=== PATIENT | female | born 1950 | race Caucasian/White ===

== ENCOUNTER → 2016-12-09 12:20 | Outpatient (CLI) | payer MEDICARE, BC ==
[2014-02-11 06:25] VITALS: BMI 31.2
[~2016-12-09 12:20] MED LIST: COREG 3.1253.125 MG PO; COUMADIN5 MG PO; CYCLOBENZAPRINE10 MG PO; FISH OIL 1,0001 CA1 PO; GABAPENTIN100 MG PO; HYDROCODONE-APA1 TAB PO; LEVOTHROID100 MCG PO; LIPITOR10 MG PO; MULTI-DAY VITAM1 TAB PO; OMEPRAZOLE20 M1 PO; PREDNISONE2.5 MG PO; TRIMETHOPRIM100 MG PO; XANAX0.25 MG; ZESTORETIC 20/21 TAB PO; ZOFRAN4 MG PO
[2016-12-31 10:00] VITALS: BMI 28.0
== END | disposition home or self-care (01) ==
LOC: D.LABREF 12:20
DX: M17.12 Unilateral primary osteoarthritis, left knee (principal); Z11.8 Encounter for screening for other infectious and parasitic diseases

== ENCOUNTER 2016-12-26 09:00 | Inpatient (IN) | payer MEDICARE, BC ==
[~2016-12-26] VITALS: Ht 154.9 cm; Wt 67.3 kg
[2016-12-26 08:28] LABS: BASOPHILS 0.5 % (0.0-2.0); HEMATOCRIT 40.7 % (36.0-48.0); IMMATURE GRANULOCYTES 0.2 % (0-5); LYMPHOCYTES 35.5 % (15-50); MCH 31.7 pg (26.0-34.0); MCHC 31.9 g/dL (31.0-37.0); MCV 99.3 fL (80.0-100.0); MONOCYTES 7.7 % (2-11); NEUTROPHILS 55.1 % (40-80); PLATELET COUNT 350 10x3/uL (130-400); RDW 13.6 % (11.5-14.5); WBC 5.9 10x3/uL (4.8-10.8)
[2016-12-26 08:36] LABS: APPEARANCE CLEAR (CLEAR); BILIRUBIN NEGATIVE (NEGATIVE); COLOR YELLOW (YELLOW); GLUCOSE NEGATIVE (NEGATIVE); KETONE NEGATIVE (NEGATIVE); LEUKOCYTE ESTERASE TRACE (NEGATIVE); NITRITE NEGATIVE (NEGATIVE); PROTEIN NEGATIVE (NEGATIVE); SPECIFIC GRAVITY 1.015 (1.005-1.020); UROBILINOGEN NORMAL (NORMAL)
[2016-12-26 08:37] LABS: BACTERIA MODERATE /hpf (NONE SEEN); MUCUS <1+ /lpf (NONE SEEN); RED CELLS - URINE 0-5 /hpf (0-5)
[2016-12-26 08:38] LABS: ANION GAP 9.9 mmol/L (8-16); APTT 38.7 SECONDS (22.8-39.4); CALCIUM 9.1 mg/dL (8.5-10.1); CARBON DIOXIDE 32.4 mmol/L (21.0-32.0); INR 2.42 (0.85-1.17); POTASSIUM - SERUM 3.3 mmol/L (3.5-5.1); PROTIME 26.5 SECONDS (11.6-15.0)
[~2016-12-26 09:00] MED LIST changes: -FISH OIL 1,0001 CA1 PO; -HYDROCODONE-APA1 TAB PO; -TRIMETHOPRIM100 MG PO; -ZOFRAN4 MG PO
[2016-12-31] VITALS (11 sets, daily range): BP systolic 88–121; BP diastolic 40–81; Ht 154.9 cm; Wt 67.3 kg
[2016-12-31] MEDS ORDERED: FISH OIL 1,0001 CA1 PO (06:03)
[2016-12-31] MEDS ORDERED: TRIMETHOPRIM100 MG PO (06:05)
[2016-12-31 06:59] LABS: INR 1.02 (0.85-1.17); PROTIME 13.3 SECONDS (11.6-15.0)
--- NOTE | 2016-12-31 08:11 | NUR ---
LEFT LEG AND FOOT WASHED WITH HIBICLENS AND ALCOHOL PRIOR TO CHLORPREP PER DN
--- NOTE | 2016-12-31 08:55 | NUR ---
ANESTHESIA ADVISED THE PATIENTS O2 SAT UPON MOVING TO THE TABLE WAS 88% PRIOR TO PROCEEDURE
--- NOTE | 2016-12-31 09:01 | NUR ---
DR PALUMBO CONSULTED ABOUT THE PATIENTS O2 SAT DR PALUMBO ORDERED DUONEB
--- NOTE | 2016-12-31 09:27 | NUR ---
DR PALUMBO CONSULTED ABOUT THE PATIENTS O2 SAT AND HE ADVISED HE WOULD COME SEE THE PATIENT IN RR
--- NOTE | 2016-12-31 09:43 | NUR ---
DR PALUMBO AT BEDSIDE ASSESING THE PTS O2 SAT. PT BLACED ON OXIMIZER AND DR PALUMBO ORDERED DISCHARGE WITH O2 SAT > 90%
--- NOTE | 2016-12-31 10:32 | NUR ---
RECIEVED PT FROM PACU PER BED. OXYGEN AT 5L PER OXIMYZER. NO SOB NOTED OR VOICED. LEFT LEG WRAPPED FROM MID THIGH TO TOES WITH TORIE WRAP. UNABLE TO MOVE TOES AT PRESENT BUT TOES ARE WARM AND PINK. ICE NOTED TO LEFT KNEE. FAMILY AT BEDSIDE. SCDS ON BILAT. BED ALARM ON FOR SAFETY. CALL LIGHT IN REACH
--- NOTE | 2016-12-31 10:56 | NUR ---
BP LITTLE LOWER THAN PREVIOUS READINGS. DID TAKE BP MEDS THIS AM. IV FLUIDS INCREASED TO 200CC/HR X 1 HOUR.
--- NOTE | 2016-12-31 13:15 | NUR ---
PT DOING WELL ON OXYGEN AND SLOWLY DECREASING PERCENT. CURRENTLY TURNED DOWN TO 2L
--- NOTE | 2016-12-31 18:05 | NUR ---
PT BP 97/56. NO COMPLAINTS AT PRESENT. OXGYGEN AT 93% WILL LEAVE OFF AT PRESENT
--- NOTE | 2016-12-31 23:49 | NUR ---
PATIENT SLEEPING IN BED, NO APPARENT DISTRESS. BED IN LOWEST LOCKED POSITION, CALL LIGHT WITHIN REACH, HOB ELEVATED, BED ALARM ON.
[2017-01-01] VITALS: BP 107/66
--- NOTE | 2017-01-01 00:01 | NUR ---
RESTING WITH EYES CLOSED, NO DISTRESS NOTED, CL IN REACH
[2017-01-01 04:00] VITALS: BP 100/60
[2017-01-01 05:30] LABS: BASOPHILS 0.4 % (0.0-2.0); EOSINOPHILS 1.3 % (0-7); HEMATOCRIT 29.8 % (36.0-48.0); HEMOGLOBIN 9.3 g/dL (12-16); IMMATURE GRANULOCYTES 0.2 % (0-5); MCHC 31.2 g/dL (31.0-37.0); MCV 99.3 fL (80.0-100.0); MEAN PLATELET VOLUME 9.3 fL (7.4-10.4); MONOCYTES 8.9 % (2-11); NEUTROPHILS 65.2 % (40-80); RDW 13.6 % (11.5-14.5); WBC 8.2 10x3/uL (4.8-10.8)
[2017-01-01 05:32] LABS: ANION GAP 7.1 mmol/L (8-16); CALCIUM 7.8 mg/dL (8.5-10.1); CARBON DIOXIDE 30.4 mmol/L (21.0-32.0); CREATININE - SERUM 1.3 mg/dL (0.6-1.3); POTASSIUM - SERUM 3.5 mmol/L (3.5-5.1)
[2017-01-01 05:42] LABS: PLATELET COUNT 238 10x3/uL (130-400)
--- NOTE | 2017-01-01 07:00 | OP ---
PATIENT NAME: IVETT AGUILAR MEDICAL RECORD: [id number] :48 LOCATION:[id number] ADMISSION DATE:12/31/16 SURGEON: MICHELLE HERNANDEZ MD DATE OF OPERATION: 12/31/2016 PREOPERATIVE DIAGNOSIS: Left knee degenerative joint disease. POSTOPERATIVE DIAGNOSIS: Left knee degenerative joint disease. PROCEDURE PERFORMED: Left total knee arthroplasty using a Biomet system. SURGEON: Demarco Hernandez MD ANESTHESIA: General with a block for postop pain. CONDITION: The patient tolerated the procedure well, was transferred to the recovery room in stable condition at termination of the procedure. INDICATIONS: This is a 66-year-old female that has had significant pain in her knee. It is increasingly getting worse. She is no longer tolerating nonoperative treatments. We discussed risks, benefits, and alternatives of surgery. She understood and wished to proceed. OPERATIVE REPORT: The patient was taken to the operating room, placed in a supine position. General anesthesia was obtained. She received a block in the preop holding area. In the operating room, she had the initial prep and drape followed by secondary ChloraPrep and Ioban dressing placement. Left leg was confirmed to be the correct leg. It was then prepped and draped in normal fashion. After this was accomplished, she was exsanguinated with an Marvel wrap. Tourniquet was elevated to 350. Midline incision was made followed by a medial parapatellar incision. Fat pad was excised. Medial soft tissue sleeve was elevated. The femur was entered with a drill. The distal guide was placed. Distal femoral cut was made. Following which it was excised. The rest of the distal femoral cuts were made at a 60. I then cut the proximal tibia, placed the femoral component and the tibial component, took it through range of motion and then marked for rotation. I then punched for tibial tray. Once this was accomplished, I then proceeded to take off the backside of the patella, measured this for a 31 and drilled the three peg holes for a 31 patella. She was then copiously irrigated. I then cemented into place a 60 femur, 67 tibia, 31 three peg hole patellar button. A 12 poly trial was placed with cement dried. Once the cement was dry, I took out the poly cleaned up the excess cement, copiously irrigated, then placed a final 12 poly. I then irrigated again. I then closed with #1 barbed PDS followed by 2-0 Vicryl followed by emmanuel. She was placed in soft dressing, awakened and transferred to recovery room in stable condition, having tolerated the procedure well. TRANSINT:[id number] Voice Confirmation ID: [id number] DOCUMENT ID: [id number] OPERATIVE REPORT [id number] IVETT AGUILAR, MICHELLE ZHOU MD at 0700 CC: [id number] DICTATION DATE: 12/31/16 0832 SPLITTER HAND: 12/31/16 0907 ADM IN [facility] [address] [place] [address]
[2017-01-01 07:58] VITALS: BP 99/58
--- NOTE | 2017-01-01 11:13 | NUR ---
PT SEEN THIS AM. DRESSING TO LEFT KNEE CLEAN DRY AND INTACT. STATES FEELS BETTER TODAY. WILL BE UP WITH THERAPY TODAY.
--- NOTE | 2017-01-01 11:25 | NUR ---
* Is the patient Alert and Oriented? Yes 0 * How many steps to enter\exit or inside your home? 1 0 * PCP Dr. Dubois 0 * Pharmacy [facility] on [address] * Preadmission Environment Home with Family 0 * ADLs Independent 0 * Equipment Rolling Walker 0 * List name and contact numbers for known caregivers / representatives who currently or will assist patient after discharge: Daughter Simone Luna [phone] Daughter - Sriram [phone] 0 * Additional services required to return to the preadmission environment? Yes 0 * Can the patient safely return to the preadmission environment? Yes 0 * Has this patient been hospitalized within the prior 30 days at any hospital? No 0 01/01/2017 11:25 DCP: Discharge Planning Patient Name: IVETT AGUILAR Admission Status: Elective Accout number: [id number] Admission Date: 12-31-2016 : 1950 Admission Diagnosis: Attending: RENU Current LOS: 1 Anticipated DC Date: 01-02-2017 Planned Disposition: Outpatient PT\OT Primary Insurance: MEDICARE A & B Discharge Planning Comments: CM met with patient to assess dc plans/needs. She states her adult grandson lives with her. She reports she was independent with all ADL's & IADL's prior to admission. She has a rolling walker. At dc, she will return home. She states her daughters will stay with her for a week or two while she recovers. She has chosen [facility] for outpatient physical therapy. Appt. scheduled for 01/06 @ 1100. Anticipate dc tomorrow. CM will follow. K 9 Handler/ Deputy: Sangeeta Rahman
[2017-01-01 12:17] VITALS: BP 90/48
[2017-01-01 15:53] VITALS: BP 99/52
--- NOTE | 2017-01-01 18:16 | NUR ---
CURRENTLY IN CPM AND TOLERATING WITHOUT COMPLAINTS. DRESSING REMAINS DRY AND INTACT. PAIN IS CONTROLLED. CALL LIGHT IN REACH
--- NOTE | 2017-01-01 19:00 | NUR ---
PATIENT SUPINE IN BED ON CPM. HOB 30 DEGREES. AAOX4. RR EVEN AND UNLABORED. 0 S/S OF DISTRESS. STATES PAIN IS A 5/10. IV TO RIGHT FA S/L WITH DRIED BLOOD AROUND INSERTION SITE. BANDAGE TO LEFT KNEE CDI. SCD'S ON. TELEMETRY ON. SRX2. BED LOW. CALL LIGHT WITHIN REACH.
--- NOTE | 2017-01-01 20:00 | NUR ---
PATIENT OFF CPM. ASSISTED TO BSC AND BACK TO BED. NIGHTTIME MEDS GIVEN. 1 TAB OXY IR GIVEN FOR PAIN PER PATIENT REQUEST. WILL REASSESS.
[2017-01-01 21:00] VITALS: BP 116/72
--- NOTE | 2017-01-01 21:10 | NUR ---
PATIENT STATES THAT PAIN HAS NOT IMPROVED. 2ND OXY IR TAB GIVEN.
--- NOTE | 2017-01-02 03:37 | NUR ---
PATIENT SLEEPING WITH NO DISTRESS NOTED. CALL LIGHT WITHIN REACH.
[2017-01-02 04:00] VITALS: BP 114/61
[2017-01-02 04:58] LABS: BASOPHILS 0.2 % (0.0-2.0); EOSINOPHILS 1.8 % (0-7); HEMATOCRIT 29.4 % (36.0-48.0); HEMOGLOBIN 9.5 g/dL (12-16); IMMATURE GRANULOCYTES 0.2 % (0-5); LYMPHOCYTES 13.2 % (15-50); MCH 31.6 pg (26.0-34.0); MCHC 32.3 g/dL (31.0-37.0); MCV 97.7 fL (80.0-100.0); MEAN PLATELET VOLUME 9.3 fL (7.4-10.4); MONOCYTES 8.4 % (2-11); NEUTROPHILS 76.2 % (40-80); PLATELET COUNT 221 10x3/uL (130-400); RBC 3.01 10x6/uL (4.00-5.40); RDW 13.6 % (11.5-14.5); WBC 8.5 10x3/uL (4.8-10.8)
[2017-01-02 05:16] LABS: ANION GAP 10.7 mmol/L (8-16); CARBON DIOXIDE 27.1 mmol/L (21.0-32.0); CREATININE - SERUM 1.1 mg/dL (0.6-1.3); POTASSIUM - SERUM 3.8 mmol/L (3.5-5.1)
--- NOTE | 2017-01-02 07:15 | NUR ---
INTRODUCED SELF TO PATIENT. PATIENT STATED SHE IS NAUSEOUS. GAVE PATIENT A SPRITE, ADMINISTERED ZOFRAN. PATIENT DENIES FURTHER NEEDS AT THIS TIME. PATIENT HAS AN EMESIS BAG IN HAND, NO EMESIS IN IT. PATIENT DOES NOT APPEAR TO BE IN DISTRESS AT THIS TIME.
[2017-01-02] MEDS ORDERED: ZOFRAN4 MG PO (07:56)
[2017-01-02] MEDS ORDERED: HYDROCODONE-APA1 TAB PO (07:56)
[2017-01-02 08:08] VITALS: BP 108/67
[2017-01-02 11:18] VITALS: BP 126/72
--- NOTE | 2017-01-02 19:00 | NUR ---
PATIENT IN BED ON CPM. HOB 30 DEGREES. AAOX4. RR EVEN AND UNLAORED. 0 S/S OF DISTRESS. STATES PAIN IS A 6/10. IV TO RIGHT FA S/L WITH NO REDNESS OR SWELLING. DRESSING TO LEFT KNEE CDI. TELEMETRY ON. SRX2. BED LOW. CALL LIGHT WITHIN REACH.
[2017-01-02 20:00] VITALS: BP 105/57
[2017-01-03] VITALS: BP 117/72
[2017-01-03 04:00] VITALS: BP 92/61
[2017-01-03 05:48] LABS: BASOPHILS 0.1 % (0.0-2.0); EOSINOPHILS 1.9 % (0-7); HEMATOCRIT 26.6 % (36.0-48.0); HEMOGLOBIN 8.4 g/dL (12-16); IMMATURE GRANULOCYTES 0.4 % (0-5); LYMPHOCYTES 21.6 % (15-50); MCH 30.8 pg (26.0-34.0); MCHC 31.6 g/dL (31.0-37.0); MCV 97.4 fL (80.0-100.0); MEAN PLATELET VOLUME 9.1 fL (7.4-10.4); MONOCYTES 10.3 % (2-11); NEUTROPHILS 65.7 % (40-80); PLATELET COUNT 222 10x3/uL (130-400); RBC 2.73 10x6/uL (4.00-5.40); RDW 13.6 % (11.5-14.5); WBC 7.6 10x3/uL (4.8-10.8)
[2017-01-03 06:02] LABS: ANION GAP 10.2 mmol/L (8-16); CARBON DIOXIDE 28.1 mmol/L (21.0-32.0); CREATININE - SERUM 1.1 mg/dL (0.6-1.3); POTASSIUM - SERUM 4.3 mmol/L (3.5-5.1)
--- NOTE | 2017-01-03 07:30 | NUR ---
RECIEVED PT DURING WALKING ROUNDS. PT RESTING COMFORTABLY IN BED WITH NO COMPLAINTS OF PAIN OR DISCOMFORT AT THIS TIME. ASSESSMENT DONE PER FLOWSHEET. BED IN LOW POSITION AND CALL LIGHT WITHIN REACH. WILL CONTINUE TO MONITOR.
[2017-01-03 07:50] LABS: INR 1.42 (0.85-1.17); PROTIME 17.2 SECONDS (11.6-15.0)
[2017-01-03 07:55] VITALS: BP 103/57
--- NOTE | 2017-01-03 09:00 | NUR ---
CPM OFF AT THIS TIME. PT UP TO CHAIR WITH PT.
--- NOTE | 2017-01-03 10:29 | NUR ---
ASSESSED PT FOR PRINTING SALES REPRESENTATIVE. PT CAME IN FOR KNEE SURGERY. PT STATED SHE IS IN NO CURRENT KNEE PAIN AND HAS BEEN WALKING WITH HER WALKER SINCE SURGERY. PT IS AWAITING D/C.
--- NOTE | 2017-02-11 16:33 | DS ---
PATIENT:IVETT AGUILAR :46 MEDICAL RECORD: [id number] DISCHARGE SUMMARY ADMISSION DATE: 12/31/16 DISCHARGE DATE: 01/03/17 DATE OF ADMISSION: 12/31/2016 DATE OF DISCHARGE: 01/03/2017 ADMITTING DIAGNOSIS: Left knee degenerative joint disease. DISCHARGE DIAGNOSES: Left knee degenerative joint disease plus postoperative acute blood loss anemia. HISTORY OF PRESENT ILLNESS: Pleasant 66-year-old female with advanced degenerative changes of her knee. She presented to the hospital and underwent a left total knee arthroplasty. She did quite well with the procedure. She was able to rehab well and it was felt that by the discharge date that she could be continued on post-total knee arthroplasty protocols, continue on anticoagulation therapy, continue on pain meds with the plan to see me back in the office in about 2 weeks, call if she is having any problems and proceed from this juncture. TRANSINT:[id number] Voice Confirmation ID: [id number] DOCUMENT ID: [id number] MICHELLE PRATHER MD at 1633 CC: [id number] DICTATION DATE: 02/04/17 1256 COMBINATION MAN: 02/05/17 0042 DIS IN 01/03/17 [facility] [id number] [place] [address]
== END 2017-01-03 11:42 | disposition home or self-care (01) | DRG 470 ==
LOC: D.SDCHOLD 12-31 05:59 → D.MS 12-31 05:59 → D.SDCHOLD 12-31 07:15 → D.MS 12-31 09:58
PROVIDERS: Family Medicine; ADMIT Orthopaedic Surgery Sports Medicine
PROC: 0SRD0J9 Replacement of Left Knee Joint with Synthetic Substitute, Cemented, Open Approach (ICD-10-PCS; principal; 2016-12-31 07:15)
DX: M17.12 Unilateral primary osteoarthritis, left knee (principal); D62 Acute posthemorrhagic anemia; I48.91 Unspecified atrial fibrillation; I10 Essential (primary) hypertension; K21.9 Gastro-esophageal reflux disease without esophagitis; E03.9 Hypothyroidism, unspecified; Z95.0 Presence of cardiac pacemaker

== ENCOUNTER → 2017-02-19 16:30 | Outpatient (CLI) | payer MEDICARE, BC ==
[2016-12-31 10:00] VITALS: BMI 28.0
[~2017-02-19 16:30] MED LIST changes: +FISH OIL 1,0001 CA1 PO; +HYDROCODONE-APA1 TAB PO; +TRIMETHOPRIM100 MG PO; +ZOFRAN4 MG PO
== END | disposition home or self-care (01) ==
LOC: D.LABREF 16:30
DX: Z11.59 Encounter for screening for other viral diseases (principal)

== ENCOUNTER → 2017-03-13 11:06 | Outpatient (CLI) | payer MEDICARE, BC ==
[2016-12-31 10:00] VITALS: BMI 28.0
[2017-03-13 13:33] LABS: APPEARANCE CLOUDY (CLEAR); COLOR YELLOW (YELLOW); GLUCOSE NEGATIVE (NEGATIVE); KETONE NEGATIVE (NEGATIVE); LEUKOCYTE ESTERASE 2+ (NEGATIVE); NITRITE POSITIVE (NEGATIVE); PROTEIN NEGATIVE (NEGATIVE); UROBILINOGEN NORMAL (NORMAL)
[2017-03-13 13:34] LABS: BACTERIA MANY /hpf (NONE SEEN); BILIRUBIN NEGATIVE (NEGATIVE); EPITHELIAL CELLS 0-5 /hpf (0-5); HYALINE CAST OCC /lpf (NONE SEEN); MUCUS <1+ /lpf (NONE SEEN); RED CELLS - URINE OCC /hpf (0-5); WHITE CELLS - URINE >50 /hpf (0-5)
== END | disposition home or self-care (01) ==
LOC: D.LAB 11:06 → D.LABREF 11:06
PROVIDERS: Student in an Organized Health Care Education/Training Program
DX: N39.0 Urinary tract infection, site not specified (principal)